=== PATIENT | female | born 1955 | race Caucasian/White ===

== ENCOUNTER → 2024-04-27 | Outpatient (CLI) | payer MEDICARE ==
--- NOTE | 2024-04-27 11:54 | CTL ---
EXAMINATION TYPE: CT Low Dose Lung DATE OF EXAM ORDERED: 04/27/2024 COMPARISON: None. CLINICAL INDICATION: Female, 68 years old with history of Z12.2 Screening; R91.1 Solitary pulmonary n odule; PHH, personal hx of nicotine dependence 1ppd X 54 years current smoker, Lung cancer screening, History of Smoking/tobacco use. TECHNIQUE: Low dose computed tomography scan was performed through the chest at 1 mm thick sections a nd reconstructed images in multiple planes at 1 mm and [address] DLP: 98.[address] CTDI: 2.6 mGy Automated exposure control for dose reduction was used. CT DIAGNOSTIC QUALITY: Satisfactory FINDINGS: Nodules: RUL: None. RML: None. RLL: None. DONALD: None. LLL: None. LUNGS: COPD: Severity: Mild Fibrosis: Severity: None Lymph nodes: None Other findings: None RIGHT PLEURAL SPACE: Effusion: None Calcification: None Thickening: None Pneumothorax: None LEFT PLEURAL SPACE: Effusion: None Calcification: None Thickening: None Pneumothorax: None HEART: Heart Size: Normal Coronary Calcification: None Pericardial Effusion: None OTHER FINDINGS: Upper abdomen: None Bony thorax: None Supraclavicular region: None Other: None IMPRESSION: Mild emphysematous change without concerning pulmonary nodule. CT LUNG RAD AND CT CHEST RECOMMENDATION: Lung-Rad 1 Negative: Continue annual screening with LDCT in 12 months. S Modifier (other clinically significant findings): None [facility], , 04/27/2024 11:52 AM
== END | disposition home or self-care (01) ==
LOC: RADCTMAIN 11:15
PROVIDERS: ATTEND Internal Medicine Geriatric Medicine
DX: Z12.2 Encounter for screening for malignant neoplasm of respiratory organs (principal); F17.210 Nicotine dependence, cigarettes, uncomplicated; J43.9 Emphysema, unspecified
CPT/HCPCS: 71271

== ENCOUNTER → 2024-04-27 | Outpatient (CLI) | payer MEDICARE ==
--- NOTE | 2024-05-01 07:42 | BD ---
EXAMINATION TYPE: Axial Bone Density DATE OF EXAM: 04/27/2024 CLINICAL HISTORY: 68 years old Female. ICD-10 CODE: M81.0 AGE-RELATED OSTEOPOROSIS W/O CURRENT PATHO LO , Additional History: Height: 67.7 Weight: 156 FRAX RISK QUESTIONS: Secondary Osteoporosis: 3. Menopause before 45: yes Current Tobacco Use: yes RISK FACTORS HISTORY OF: Surgery to Spine/Hip(right/left)/Wrist (right/left): lumbar fusion with hardware When: 2002 MEDICATIONS: EXAM MEASUREMENTS: Bone mineral densitometry was performed using the [employer] System. Bone mineral density about the R hip (g/cm2): 0.964 Bone mineral density about the L hip (g/cm2): 0.983 T Score values are as follows: -----R Neck: -1.2 -----L Neck: -0.9 -----R Total: -0.3 -----L Total: -0.2 Z Score values are as follows: -----R Neck: 0.4 -----L Neck: 0.7 -----R Total: 1.0 -----L Total: 1.2 Bone mineral density has: Decreased -7.9% since study of: 12-01-13 FRAX%s: The graph provided illustrates a 9.3% chance for a major osteoporotic fx and a 1.9% chance fo r the hips probability for fx in 10 years time. IMPRESSION: Osteopenia (T Score between -2.5 and -1). There is slightly increased risk of fracture and the patient may be considered for treatment. Re-Screen 2-5 years. NOTE: T-SCORE=SD OF THE YOUNG ADULT MEAN. [facility], , 05/01/2024 7:39 AM
== END | disposition home or self-care (01) ==
LOC: RADBDWWP 10:43
PROVIDERS: ATTEND Internal Medicine Geriatric Medicine
DX: M81.0 Age-related osteoporosis without current pathological fracture (principal); M85.89 Other specified disorders of bone density and structure, multiple sites
CPT/HCPCS: 77080

== ENCOUNTER 2024-05-04 08:17 | Day surgery (SDC) | payer MEDICARE ==
[2024-05-01 12:39] VITALS: BMI 23.8
[~2024-05-04 08:17] MED LIST: LIDOCAINE 1% (10MG/ML) FOR IV START INTRADERMA PRN
[2024-05-04] MEDS: LACTATED RINGERS 1,000 ML IV ONE (08:46)
[2024-05-04] MEDS: LACTATED RINGERS 1,000 ML IV SCH (09:07)
[2024-05-04 09:09] VITALS: RESP 16; TEMP 97.8
[2024-05-04] MEDS ORDERED: LIDOCAINE 1% INJ 10MG/ML (20 ML MDV) ONE (09:10)
[2024-05-04] MEDS ORDERED: PROPOFOL 10 MG/ML 20 ML VIAL IV ONE (09:10)
--- NOTE | 2024-05-04 09:42 | P.PCN ---
Date of Procedure: 05/04/24 Preoperative Diagnosis: Change in bowel movements Mucus in stool Postoperative Diagnosis: Diverticulosis Procedure(s) Performed: Colonoscopy Anesthesia: MAC Surgeon: Santa Hawley Pathology: none sent Condition: stable Disposition: same day Indications for Procedure: 68-year-old female with recent change in bowels and noticing mucus in stool and some occasional leakage. She feels like she has incomplete bowel movements. Plan is for colonoscopy for further evaluation. Risks, benefits and alternat emy were provided to the patient. All questions answered. Operative Findings: Diverticulosis Description of Procedure: The patient was brought to the endoscopy suite and placed in left lateral decubitus position and adequate sedation was achieved using conscious sedation. Digital rectal exam was performed and mild internal hemorrhoids were palpated. An endoscope was then placed in the rectum and advanced to the cecum as identified by landmarks including the appendiceal orifice and the ileocecal valve. The prep was good. The colonoscope was then slowly withdrawn, examining for any mucosal abnormalities. The cecum, ascending, transverse, descending and sigmoid colon were visualized adequately. There were no large neoplastic lesions noted throughout the colon. There were no obvious polyps noted throughout the colon. Diverticulosis was noted scattered throughout the colon. Hemostasis was maintained. Retroflexion was performed in the rectum and mild internal hemorrhoids. Excess air was removed, the colonoscope withdrawn and the procedure terminated. The patient was then transferred to the recovery unit in stable condition. Repeat colonoscopy should be performed in 5 years.
[2024-05-04 09:57] VITALS: BP 147/88; PULSE 70
== END 2024-05-04 10:10 | disposition home or self-care (01) ==
LOC: ORWHC2ENDO 08:17
PROVIDERS: ATTEND Surgery
DX: K57.30 Diverticulosis of large intestine without perforation or abscess without bleeding (principal); E78.5 Hyperlipidemia, unspecified; J44.9 Chronic obstructive pulmonary disease, unspecified; F41.9 Anxiety disorder, unspecified; F32.A Depression, unspecified; M19.90 Unspecified osteoarthritis, unspecified site; H91.90 Unspecified hearing loss, unspecified ear; F17.200 Nicotine dependence, unspecified, uncomplicated; Z79.51 Long term (current) use of inhaled steroids; Z79.899 Other long term (current) drug therapy
CPT/HCPCS: 45378; J2003; J2704